=== PATIENT | female | born 1985 | race Two or more races ===

== ENCOUNTER 2022-07-12 04:31 | Emergency (ER) | payer OTHER ==
[~2022-07-12] VITALS: Ht 160 cm; Wt 49.9 kg
[~2022-07-12 04:31] MED LIST: CEFADROXIL500 MG PO; KETO10TA2 PO
[2022-07-12] MEDS ORDERED: PEPCID AC20 MG PO (06:44)
[2022-07-12] MEDS ORDERED: ZOFRAN8 MG PO (06:44)
[2022-07-12] MEDS ORDERED: CARAFATE1 GM PO (06:44)
== END 2022-07-12 06:52 | disposition home or self-care (01) ==
LOC: ER 04:31
DX: K29.70 Gastritis, unspecified, without bleeding (principal); R11.2 Nausea with vomiting, unspecified; Z20.822 Contact with and (suspected) exposure to COVID-19